=== PATIENT | female | born 1985 | race African-American/Black ===

== ENCOUNTER 2017-12-18 13:04 | Emergency (ER) | payer OTHER ==
[~2017-12-18] VITALS: Ht 144.8 cm; Wt 68.0 kg
[~2017-12-18 13:04] MED LIST: AMBIEN 5 MG TABL5 M1 PO; BUTALB-APAP-CA1 EACH PO; HYDROCODONE-AP1 EAC6 PO; IBUPROFEN 600600 M1 PO; MAGOX 400400 MG PO; NAPROSYN500 MG PO
[2017-12-18 13:12] VITALS: BP 132/105
[2017-12-18] MEDS ORDERED: TOPAMAX 25 MG T25 M1 PO (13:17)
[2017-12-18] MEDS ORDERED: PAXIL10 MG PO (13:18)
[2017-12-18] MEDS ORDERED: BACLOFEN 10MG T10 MG PO (13:18)
[2017-12-18] MEDS ORDERED: ADDERALL 5 MG TA5 MG PO (13:18)
[2017-12-18] MEDS ORDERED: NORFLEX100 MG PO (14:07)
[2017-12-18] MEDS ORDERED: ACETAMINOPHEN-1 EAC1 PO (14:07)
[2017-12-18] MEDS ORDERED: PREDNISONE 10 M10 MG PO (14:07)
== END 2017-12-18 14:14 | disposition home or self-care (01) ==
LOC: M.ERS 13:04
DX: M54.5 Low back pain (principal); F32.9 Major depressive disorder, single episode, unspecified

== ENCOUNTER 2018-07-06 12:32 | Emergency (ER) | payer BC ==
[~2018-07-06] VITALS: Ht 152.4 cm; Wt 63.5 kg
[~2018-07-06 12:32] MED LIST changes: +ACETAMINOPHEN-1 EAC1 PO; +ADDERALL 5 MG TA5 MG PO; +BACLOFEN 10MG T10 MG PO; +NORFLEX100 MG PO; +PAXIL10 MG PO; +PREDNISONE 10 M10 MG PO; +TOPAMAX 25 MG T25 M1 PO
[2018-07-06] MEDS ORDERED: FLEXERIL PO ×2 (12:45→14:56)
[2018-07-06] MEDS ORDERED: NORCO 5-325 TA1 EACH PO (14:56)
[2018-07-06 15:05] VITALS: BP 143/98
== END 2018-07-06 15:05 | disposition home or self-care (01) ==
LOC: M.ERS 12:32
DX: M54.5 Low back pain (principal); G47.00 Insomnia, unspecified; F32.9 Major depressive disorder, single episode, unspecified; G89.29 Other chronic pain; Z88.8 Allergy status to other drugs, medicaments and biological substances

== ENCOUNTER 2018-11-14 02:50 | Emergency (ER) | payer BC ==
[~2018-11-14] VITALS: Ht 144.8 cm; Wt 72.6 kg
[~2018-11-14 02:50] MED LIST changes: +FLEXERIL PO; +NORCO 5-325 TA1 EACH PO
[2018-11-14] MEDS ORDERED: AMBIEN 5 MG TABL5 M1 (03:01)
[2018-11-14] MEDS ORDERED: HYDROCODON-ACE1 EAC7 PO (03:33)
[2018-11-14 03:50] VITALS: BP 122/84
== END 2018-11-14 03:50 | disposition home or self-care (01) ==
LOC: M.ERS 02:50
DX: M25.561 Pain in right knee (principal); M54.5 Low back pain; G89.29 Other chronic pain; G47.00 Insomnia, unspecified; F32.9 Major depressive disorder, single episode, unspecified; Z88.8 Allergy status to other drugs, medicaments and biological substances